=== PATIENT | female | born 1980 | race Caucasian/White ===

== ENCOUNTER 2021-08-22 13:00 | Outpatient (CLI) | payer OTHER ==
[2021-08-22 13:38] LABS: TOTAL VOLUME 24HRS,URINE 1300 mL
[2021-08-22 14:14] LABS: TOTAL PROTEIN,URINE TIMED < 6 mg/dL
== END 2021-08-22 23:59 | disposition home or self-care (01) ==
LOC: LAB.R 13:00
PROVIDERS: ATTEND Internal Medicine Rheumatology
DX: R76.8 Other specified abnormal immunological findings in serum (principal); R80.9 Proteinuria, unspecified
CPT/HCPCS: 84156

== ENCOUNTER 2021-09-02 20:17 | Emergency (ER) | payer OTHER ==
--- NOTE | 2021-09-02 21:08 | ED Physician Documentation ---
History of Present Illness - Stated complaint Stated Complaint: FOREIGN TRAVEL/FLU SYMPTOMS - Chief complaint Chief Complaint: General - History obtained from History obtained from: Patient - Additonal information Additional information: Patient is a 41-year-old female with no significant past medical history who recently returned from travel in [place]. On her last day of travel she started experiencing chills, body aches, weakness and diarrhea. She required COVID test to return back to the [place] and had 3 PCR test that she reports are negative. She was initially starting to feel better but again today having continued diarrhea with more than 7 episodes that are loose and watery with no blood. She reports having abdominal cramping. She denies any known sick contacts. She only traveled in [place] and was staying at a resort. She has not taken any medications for her symptoms. Review of Systems Constitutional: reports: Chills. denies: Fever Nose: denies: Congestion Throat: denies: Sore throat Cardiac: denies: Chest pain / pressure Respiratory: denies: Dyspnea, Cough GI: reports: Abdominal Pain, Diarrhea (Cramping). denies: Vomiting : denies: Dysuria, Discharge Skin: denies: Rash Musculoskeletal: denies: Back pain Neurologic: denies: Headache PD PAST MEDICAL HISTORY - Present Medications Home Medications: Ambulatory Orders Medication Instructions Recorded Confirmed Norgestimate-Ethinyl Estradiol 1 each PO DAILY 09/02/21 09/02/21 [[id number] Tablet] - Allergies Allergies/Adverse Reactions: Allergies Allergy/AdvReac Type Severity Reaction Status Date / Time No Known Drug Allergies Allergy Verified 09/02/21 20:32 PD ED PE NORMAL - General General: Alert and oriented X 3, No acute distress, Well developed/nourished - HEENT HEENT: Atraumatic, Moist mucous membranes, Pharynx benign - Neck Neck: Supple, no meningeal sign - Cardiac Cardiac: RRR, No murmur, Strong equal pulses - Respiratory Respiratory: No respiratory distress, Clear bilaterally - Abdomen Abdomen: Soft, Non distended, Other (Mild generalized abdominal tenderness, hyperactive bowel sounds) - Derm Derm: Warm and dry - Extremities Extremities: No edema - Neuro Neuro: Normal speech - Psych Psych: Normal mood Results - Vitals Vitals: Vital Signs - 24 hr 09/02/21 09/02/21 20:26 23:12 Temperature 36.4 C L 36.3 C L Heart Rate 77 62 Respiratory 14 16 Rate Blood Pressure 133/82 H 120/85 H O2 Saturation 99 98 Oxygen O2 Source Room air - Labs Labs: Laboratory Tests 09/02/21 09/02/21 09/02/21 20:40 21:20 21:20 WBC 10.5 RBC 3.85 L Hgb 12.7 Hct 37.3 MCV 96.9 MCH 33.0 H MCHC 34.0 RDW 12.1 Plt Count 308 MPV 9.5 Neut # (Auto) 7.2 H Lymph # (Auto) 2.0 [place] # (Auto) 1.0 Eos # (Auto) 0.2 Baso # (Auto) 0.1 Absolute Nucleated RBC 0.00 Nucleated RBC % 0.0 Sodium 137 Potassium 3.5 Chloride 101 Carbon Dioxide 25 Anion Gap 11.0 BUN 7 Creatinine 0.9 Estimated GFR (MDRD) 70 L Glucose 98 Calcium 8.7 Total Bilirubin 0.3 AST 21 ALT 26 Alkaline Phosphatase 38 L Total Protein 6.7 Albumin 3.5 Globulin 3.2 Albumin/Globulin Ratio 1.1 Lipase 32 Urine Color Urine Clarity Urine pH Ur Specific [place] Urine Protein Urine Glucose (UA) Urine Ketones Urine Occult Blood Urine Nitrite Urine Bilirubin Urine Urobilinogen Ur Leukocyte Esterase Ur Microscopic Review Urine Culture Comments Urine HCG, Qual Nasal Adenovirus (PCR) NOT DETECTED Nasal B. parapertussis DNA (PCR) NOT DETECTED Nasal Coronavir 229E PCR NOT DETECTED Nasal Coronavir HKU1 PCR NOT DETECTED Nasal Coronavir NL63 PCR NOT DETECTED Nasal Coronavir OC43 PCR NOT DETECTED Nasal Enterovir/Rhinovir PCR NOT DETECTED Nasal Influenza B PCR NOT DETECTED Nasal Influenza A PCR NOT DETECTED Nasal Parainfluen 1 PCR NOT DETECTED Nasal Parainfluen 2 PCR NOT DETECTED Nasal Parainfluen 3 PCR NOT DETECTED Nasal Parainfluen 4 PCR NOT DETECTED Nasal RSV (PCR) NOT DETECTED Nasal B.pertussis DNA PCR NOT DETECTED Nasal C.pneumoniae (PCR) NOT DETECTED Enoc Human Metapneumo PCR NOT DETECTED Nasal M.pneumoniae (PCR) NOT DETECTED Nasal SARS-CoV-2 (PCR) NOT DETECTED 09/02/21 09/02/21 22:32 22:32 WBC RBC Hgb Hct MCV MCH MCHC RDW Plt Count MPV Neut # (Auto) Lymph # (Auto) [place] # (Auto) Eos # (Auto) Baso # (Auto) Absolute Nucleated RBC Nucleated RBC % Sodium Potassium Chloride Carbon Dioxide Anion Gap BUN Creatinine Estimated GFR (MDRD) Glucose Calcium Total Bilirubin AST ALT Alkaline Phosphatase Total Protein Albumin Globulin Albumin/Globulin Ratio Lipase Urine Color DARK YELLOW Urine Clarity CLEAR Urine pH 6.0 Ur Specific [place] 1.010 Urine Protein NEGATIVE Urine Glucose (UA) NEGATIVE Urine Ketones NEGATIVE Urine Occult Blood TRACE-INTA Urine Nitrite NEGATIVE Urine Bilirubin NEGATIVE Urine Urobilinogen 0.2 (NORMAL) Ur Leukocyte Esterase NEGATIVE Ur Microscopic Review NOT INDICATED Urine Culture Comments NOT INDICATED Urine HCG, Qual NEGATIVE Nasal Adenovirus (PCR) Nasal B. parapertussis DNA (PCR) Nasal Coronavir 229E PCR Nasal Coronavir HKU1 PCR Nasal Coronavir NL63 PCR Nasal Coronavir OC43 PCR Nasal Enterovir/Rhinovir PCR Nasal Influenza B PCR Nasal Influenza A PCR Nasal Parainfluen 1 PCR Nasal Parainfluen 2 PCR Nasal Parainfluen 3 PCR Nasal Parainfluen 4 PCR Nasal RSV (PCR) Nasal B.pertussis DNA PCR Nasal C.pneumoniae (PCR) Enoc Human Metapneumo PCR Nasal M.pneumoniae (PCR) Nasal SARS-CoV-2 (PCR) PD MEDICAL DECISION MAKING - ED course Complexity details: reviewed results, re-evaluated patient, d/w patient ED course: 2343 - Patient feeling significantly better after receiving IV fluids. No episodes of diarrhea while here so unable to give a stool sample. Patient with chills, body aches and diarrhea. Has abdominal cramping And mild generalized tenderness on exam.No pelvic tenderness. Vitals are reassuring and labs are unremarkable. Patient felt significantly better after IV fluids and Toradol with no tenderness on repeat exam. Do not think she requires a CT tonight. Patient was not able to give a stool sample. Counseled on continuing with supportive care and aware of return precautions. Departure - Departure Disposition: 01 Home, Self Care Clinical Impression: Diarrhea Qualifiers: Diarrhea type: presumed infectious Qualified Code(s): R19.7 - Diarrhea, unspecified Condition: Stable Instructions: ED Diet Vomiting Diarrhea Comments: Priscilla - You were evaluated for abdominal cramping and diarrhea. Your labs are overall reassuring. You were not able to give a stool sample to see if there is an infection in the stool causing your symptoms that would require antibiotics. A respiratory panel was performed which is negative for COVID as well as a number of other cold viruses. However your symptoms could be related to a virus that we do not check for.Please continue with hydrating yourself And using Motrin or Tylenol for any aches or pains. If you develop any worsening symptoms please return to the emergency department. Discharge Date/Time: 09/02/21 23:56
[2021-09-02 21:26] LABS: BASOPHILS # (AUTO) 0.1 10^3/uL (0.0-0.1); BASOPHILS % (AUTO) 0.5 %; EOSINOPHILS # (AUTO) 0.2 10^3/uL (0.0-0.7); EOSINOPHILS % (AUTO) 2.1 %; HCT - HEMATOCRIT 37.3 % (37.0-47.0); HGB - HEMOGLOBIN 12.7 g/dL (12.0-16.0); LYMPHOCYTES % (AUTO) 18.8 %; MEAN CORPUSCULAR VOLUME 96.9 fL (81.0-99.0); MEAN PLATELET VOLUME 9.5 fL (7.9-10.8); MONOCYTES % (AUTO) 9.6 %; NEUTROPHILS # (AUTO) 7.2 10^3/uL (1.5-6.6); NEUTROPHILS % (AUTO) 68.6 %; PLT - PLATELET COUNT 308 10^3/uL (130-450); RED BLOOD COUNT 3.85 10^6/uL (4.20-5.40); RED CELL DISTRIBUTION WIDTH 12.1 % (12.0-15.0); WHITE BLOOD COUNT 10.5 x10^3/uL (4.8-10.8)
[2021-09-02] MEDS: KETOROLAC 30 MG/ML VIAL IVP STA (21:45)
[2021-09-02 21:49] LABS: B. PARAPERTUSSIS- RESP PCR PAN NOT DETECTED; B. PERTUSSIS- RESP PCR PANEL NOT DETECTED; C. PNEUMONIAE- RESP PCR PANEL NOT DETECTED; CORONAVIRUS 229E-RESP PCR NOT DETECTED; CORONAVIRUS HKU1-RESP PCR NOT DETECTED; CORONAVIRUS NL63-RESP PCR NOT DETECTED; CORONAVIRUS OC43-RESP PCR NOT DETECTED; HUMAN METAPNEUMOVIRUS NOT DETECTED; INFLUENZA A- RESP PCR PANEL NOT DETECTED; INFLUENZA B - RESP PCR PANEL NOT DETECTED; M. PNEUMONIAE- RESP PCR PANEL NOT DETECTED; PARAINFLUENZA VIRUS 1 NOT DETECTED; PARAINFLUENZA VIRUS 2 NOT DETECTED; PARAINFLUENZA VIRUS 3 NOT DETECTED; PARAINFLUENZA VIRUS 4 NOT DETECTED; RHINOVIRUS/ENTEROVIRUS NOT DETECTED; RSV- RESP PCR PANEL NOT DETECTED; SARS-CoV-2 -RESP PCR PANEL NOT DETECTED
[2021-09-02] MEDS: SODIUM CHLORIDE 0.9% 1,000 ML IV STA (21:49)
[2021-09-02 22:01] LABS: ALBUMIN 3.5 g/dL (3.2-5.5); ALBUMIN/GLOBULIN RATIO 1.1 (1.0-2.2); BILIRUBIN,TOTAL 0.3 mg/dL (0.2-1.0); CALCIUM 8.7 mg/dL (8.5-10.3); CREATININE 0.9 mg/dL (0.4-1.0); POTASSIUM 3.5 mmol/L (3.5-5.0); TOTAL PROTEIN 6.7 g/dL (6.7-8.2)
[2021-09-02 22:48] LABS: GLUCOSE, URINE (UA) NEGATIVE (NEGATIVE); KETONES,URINE (UA) NEGATIVE (NEGATIVE); LEUKOCYTE ESTERASE, URINE NEGATIVE (NEGATIVE); NITRITE,URINE NEGATIVE (NEGATIVE); OCCULT BLOOD,URINE TRACE-INTA (NEGATIVE); PROTEIN,URINE NEGATIVE (NEGATIVE); UROBILINOGEN,URINE 0.2 (NORMAL) E.U./dL (NORMAL)
[2021-09-02 22:57] LABS: BILIRUBIN,URINE NEGATIVE (NEGATIVE); CLARITY,URINE CLEAR (CLEAR); ICTOTEST,URINE NEGATIVE
[2021-09-02 23:14] VITALS: BP 120/85
[2021-09-02 23:27] LABS: HCG UR QUAL NEGATIVE
== END 2021-09-02 23:56 | disposition home or self-care (01) ==
LOC: ED 20:17
DX: R19.7 Diarrhea, unspecified (principal); Z20.822 Contact with and (suspected) exposure to COVID-19
CPT/HCPCS: 36415; 80053; 81001; 81003; 81025; 83690; 85025; 87086; 87633; 96374; 99282

== ENCOUNTER 2022-03-13 07:37 | Emergency (ER) | payer OTHER ==
[2022-03-13 07:49] VITALS: BP 129/81
[2022-03-13 08:03] LABS: RAPID STREP SCREEN Negative (Negative)
[2022-03-13] MEDS ORDERED: CHERRY SYRUP 10 ML UDC PO ONE (09:48)
[2022-03-13] MEDS ORDERED: DEXAMETHASONE 10 MG/ML VIAL PO STA (09:48)
--- NOTE | 2022-03-13 09:50 | ED Physician Documentation ---
PD HPI URI - Stated complaint Stated Complaint: THROAT PX - Chief complaint Chief Complaint: Heent - History obtained from History obtained from: Patient - History of Present Illness Timing - onset: How many days ago (5) Timing duration: Days (5) Timing details: Gradual onset, Still present Associated symptoms: Nasal congestion, Rhinorrhea, Sore throat, Dry cough, Dyspnea. No: Fever Contributing factors: Sick contact Improves by: Rest, Medication Worsened by: Activity Similar symptoms before: Diagnosis (uri) Recently seen: Not recently seen - Additional information Additional information: Previously healthy Priscilla Lizama is a 41-year-old female who has developed a cough and congestion 5 days ago. She has a sore throat. That is her predominant symptom. She has had cough productive of clear phlegm. She denies muffled hearing ear pain or sinus pain. Review of Systems Constitutional: reports: Myalgias, Fatigue. denies: Fever Eyes: denies: Decreased vision Ears: denies: Ear pain Nose: reports: Rhinorrhea / runny nose, Congestion Throat: reports: Sore throat Cardiac: denies: Chest pain / pressure, Palpitations Respiratory: reports: Dyspnea, Cough GI: denies: Nausea, Vomiting, Constipation, Diarrhea : denies: Dysuria, Frequency PD PAST MEDICAL HISTORY - Present Medications Home Medications: Ambulatory Orders Medication Instructions Recorded Confirmed Norgestimate-Ethinyl Estradiol 1 each PO DAILY 09/02/21 09/02/21 [[id number] Tablet] - Allergies Allergies/Adverse Reactions: Allergies Allergy/AdvReac Type Severity Reaction Status Date / Time No Known Drug Allergies Allergy Verified 09/02/21 20:32 PD ED PE NORMAL - Vitals Vital signs reviewed: Yes (normal ) - General General: Alert and oriented X 3, No acute distress, Well developed/nourished - HEENT HEENT: Atraumatic, PERRL, EOMI, Ears normal, Moist mucous membranes, Other (mild pharyngeal erythema ) - Neck Neck: Supple, no meningeal sign, No bony TTP - Cardiac Cardiac: RRR, No murmur - Respiratory Respiratory: No respiratory distress, Clear bilaterally - Abdomen Abdomen: Soft, Non tender - Back Back: No CVA TTP, No spinal TTP - Derm Derm: Normal color, Warm and dry, No rash - Extremities Extremities: No deformity, No edema - Neuro Neuro: Alert and oriented X 3, mold dumper 2-12 intact, No motor deficit, No sensory deficit, Normal speech Eye Opening: Spontaneous Motor: Obeys Commands Verbal: Oriented GCS Score: 15 - Psych Psych: Normal mood, Normal affect Results - Vitals Vitals: Vital Signs - 24 hr 03/13/22 07:47 Temperature 37.1 C Heart Rate 78 Respiratory 18 Rate Blood Pressure 129/81 H O2 Saturation 98 Oxygen O2 Source Room air - Labs Labs: Laboratory Tests 03/13/22 07:48 Group A Strep Rapid Negative PD MEDICAL DECISION MAKING - ED course Complexity details: considered differential, d/w patient ED course: 41-year-old female with a chief complaint of a sore throat has a negative rapid strep and she has no evidence of inflammation in the middle ear she has no drainage of yellow or green phlegm and she is afebrile. She did do a COVID test yesterday which was negative. She likely has one of the 6 respiratory viruses currently in the community and we have diagnosed her with viral URI. She is given a dose of dexamethasone. She is on a 5th day of illness expected to improve. Departure - Departure Disposition: 01 Home, Self Care Clinical Impression: Viral URI with cough Condition: Stable Instructions: ED Pharyngitis Viral Follow-Up: YARA CONNELL MD [Primary Care Provider] - Comments: Priscilla today we did not find evidence of a bacterial infection. The rapid strep was negative. A culture is being done and if it is positive you will get a call from us in the next 2 days. Our expectation is improvement today symptomatically with the decadron we gave you and continued improvement after that. Development of green or yellow phlem that is persistent is a reason for follow up. It is typical at the conclusion of the illness to cough up "thick" phlem that may be brown or [place].
== END 2022-03-13 10:19 | disposition home or self-care (01) ==
LOC: ED 07:37
DX: J06.9 Acute upper respiratory infection, unspecified (principal)
CPT/HCPCS: 87070; 87430; 99282; 99283; A9270

== ENCOUNTER 2022-10-08 13:39 | Outpatient (CLI) | payer OTHER ==
--- NOTE | 2022-10-08 21:27 | MRI Report ---
PROCEDURE: FINGER(S) WO - RT INDICATIONS: RIGHT THUMB PAIN TECHNIQUE: Noncontrast oblique coronal T1 spin echo and T2 fast spin echo with fat saturation, axial and sagitta l T2 fast spin echo with fat saturation, through the thumb. COMPARISON: None. FINDINGS: Image quality: Excellent. Bones: The bones are normally aligned, without marrow contusions or fractures. Mild first CMC joint osteoarthritic changes are seen with joint space narrowing and subchondral sclerosis. No intra-osseou s lesions. First carpometacarpal joint: On sagittal images, the dorsal radial ligament and posterior oblique li gament appear thickened. The intermetacarpal ligament between the 1st and 2nd metacarpal bases also appears intact. On the volar aspect, the deep and superficial layers of the anterior oblique ligamen t appear attenuated with intrasubstance T2 hyperintense signal near its proximal insertion First metacarpophalangeal joint: The proper and accessory components of the radial collateral ligame nt appears thickened. The overlying fibers of the abductor pollicis brevis tendon very intact. The p jacuqie and accessory components of the ulnar collateral ligaments appear intact, along with overlying fibers of the adductor pollicis muscle. The aponeurosis of the adductor pollicis muscle also appears normal. The volar plate appears intact on sagittal images, situated between the radial and ulnar se samoids. Thenar muscles: The superficial abductor pollicis longus muscle appears normal, with tendon insertin g on the radial base of the first proximal phalanx. The opponens pollicis muscle also appears normal , inserting on the first metacarpal shaft. The flexor pollicis brevis muscle appears normal, with te ndon inserting on the radial sesamoid and first proximal phalanx. The oblique and transverse heads o f the adductor pollicis muscle appear normal, inserting on the ulnar sesamoid and proximal phalanx as part of the adductor aponeurosis. Flexor pollicis longus tendon: Tendon fibers appear intact, coursing between the thenar eminence mus cles and the adductor pollicis muscle, and inserting on the volar base of the distal phalanx. The fi rst annular saima at the level of the first MCP joint appears intact, intimate with the sesamoids. The second annular saima at the level of interphalangeal joint also appears intact. The oblique samreen ular saima between the 1st and 2nd annular pulleys appears intact, with ulnar proximal attachment in timate with the adductor aponeurosis. The variable annular saima also appears intact between the fi rst annular and oblique annular pulleys. Extensor tendons: The extensor pollicis brevis tendon appears intact, coursing radial to the extenso r pollicis longus tendon and inserting on the dorsal base of the proximal phalanx, blending with the dorsal plate of the first MCP joint. The extensor pollicis longus tendon appears intact as it insert s on the dorsal base of the distal phalanx. The sagittal band at the level of the first MCP joint ap pears intact. The abductor pollicis longus tendon slips appear intact at the radial aspect of the pr oximal phalanx, proximal to the abductor pollicis brevis tendon insertion. Miscellaneous: No ganglion cysts. IMPRESSION: 1. Mild first CMC joint osteoarthritic changes as above. No marrow edema. No fracture or dislocation. No suspicious bony lesions. 2. Sprain involving dorsal radial ligament and posterior oblique ligament of first CMC joint. Sprain/ low-grade partial thickness tear involving anterior oblique ligament near its proximal insertion. 3. Low-grade sprain involving radial collateral ligament of first MCP joint. The ulnar collateral lig ament is intact. 4. No thenar muscle signal abnormalities. Extensor and flexor tendons are intact. Reviewed by: Yvan Aguayo MD on 10/08/2022 9:26 PM PDT Approved by: Yvan Aguayo MD on 10/08/2022 9:26 PM PDT Station ID: [id number]
== END 2022-10-08 13:40 | disposition home or self-care (01) ==
LOC: DI 13:39
PROVIDERS: ATTEND Student in an Organized Health Care Education/Training Program
DX: S63.681A Other sprain of right thumb, initial encounter (principal); M18.11 Unilateral primary osteoarthritis of first carpometacarpal joint, right hand

== ENCOUNTER 2023-03-23 07:25 | Outpatient (CLI) | payer OTHER ==
[~2023-03-23 07:25] MED LIST: GADOTERATE MEGLUMINE 10 MMOL/20 ML VIAL ONE
--- NOTE | 2023-03-23 14:09 | MRI Report ---
PROCEDURE: PELVIS W/WO INDICATIONS: ADENOMYOSIS OF UTERUS CONTRAST: 13.6ml Clariscan TECHNIQUE: Coronal ultra fast SE, sagittal breath-hold T2 FSE; axial T1 FSE with and without fat saturation thro ugh the pelvis. Optional long- and short-axis uterine nonbreath-hold T2 FSE through the uterus. Sag ittal or axial dynamic ultra fast GE during administration of contrast. Post-contrast axial or coron al ultra fast GE / 2-D spoiled GE with fat saturation from the iliac crests to the symphysis. Option al diffusion weighted imaging and ADC may be performed. COMPARISON: None. FINDINGS: Image quality: Excellent. Uterus: Uterus is normal in size, is anteverted and anteflexed. Within the junctional zone, there is a T2 hypointense lesion with tiny, internal, punctate T2 hyperintense foci measuring 2.2 x 1.6 cm al gato the posterior margin of the upper uterine segment (series 3, image 16). A couple of uterine fibro ids are also present, which are viable. For example, the 1.1 x 0.9 cm lesion on the anterior margin o f the mid uterine segment (series 3, image 15) and the 1.2 x 0.9 cm intramural lesion along the poste rior mid uterine segment (series 3, image 16). Nabothian cysts. Adnexa: Both ovaries are normal in size, without suspicious cystic or solid lesions. Urinary system: Bladder wall is normal in thickness. Distal ureters are non distended. Urethra dom ears normal in morphology. Nodes and vessels: No pelvic or inguinal adenopathy by size criteria. Iliac vessels are normal in s ize. Bowel and peritoneum: No pathologic free pelvic fluid. Inferior colon and small bowel loops are nor mal in caliber. Soft tissues: No inguinal hernias. No findings of pelvic floor incompetence in the absence of provo cation. Bones: Marrow demonstrates normal overall signal. IMPRESSION: Suspected focal adenomyomatosis at the uterine fundus measuring 2.2 x 1.6 cm. Additional smaller intramural uterine fibroids, which are viable. Reviewed by: Matthew Garces MD on 03/23/2023 2:08 PM PST Approved by: Matthew Garces MD on 03/23/2023 2:08 PM PST Station ID: [id number]
[2023-03-23] MEDS ORDERED: GADOTERATE MEGLUMINE 10 MMOL/20 ML VIAL IVP ONE (16:51)
== END 2023-03-23 07:26 | disposition home or self-care (01) ==
LOC: DI 07:25
PROVIDERS: ATTEND Pediatrics
DX: N80.03 Adenomyosis of the uterus (principal); N83.209 Unspecified ovarian cyst, unspecified side; D25.1 Intramural leiomyoma of uterus
CPT/HCPCS: 72197; A9575

== ENCOUNTER 2023-10-31 07:16 | Outpatient (CLI) | payer OTHER ==
--- NOTE | 2023-11-01 15:42 | Ultrasound Report ---
PROCEDURE: Pelvic w/Transvaginal INDICATIONS: AUB TECHNIQUE: Real-time scanning was performed of the pelvic organs, with image documentation. Additional endovagi nal scanning was necessary due to incomplete visualization of the adnexal and endometrial structures by transabdominal scanning. COMPARISON: Pelvic MRI 03/23/2023. FINDINGS: Uterus: Uterus is anteverted and normal in size at 9.3 x 5.1 x 4.9 cm. The myometrium is heterogene ous. The endometrium measures 13 mm in combined thickness. Fibroid versus polyp in the endometrium m easuring 1.2 x 1.0 x 0.9 cm. Vertical shadowing at the fundus consistent with history of adenomyosis. Right anterior subserosal fibroid measuring 1.6 x 1.2 x 1.5 cm. Ovaries: The right ovary is surgically absent. The left ovary measures 2.4 x 1.6 x 3.0 cm, with a c alculated ovarian volume of 6.2 cc. Normal appearance of the left ovary. Other: No pathologic free abdominal or pelvic fluid. IMPRESSION: 1.Endometrial polyp versus submucosal fibroid measuring 1.2 cm. Recommend endometrial sampling or tesfaye rt-term follow-up ultrasound. 2.Findings consistent with adenomyosis at the fundus as seen on prior MRI. 3.Right ovary is surgically absent. Left ovary is normal in appearance. 4.Right anterior subserosal fibroid measuring 1.6. Reviewed by: Gallito Mckinney MD on 11/01/2023 3:40 PM PDT Approved by: Gallito Mckinney MD on 11/01/2023 3:40 PM PDT Station ID: [id number]
== END 2023-10-31 07:17 | disposition home or self-care (01) ==
LOC: DI 07:16
PROVIDERS: ATTEND Obstetrics & Gynecology
DX: D25.2 Subserosal leiomyoma of uterus (principal); Z90.721 Acquired absence of ovaries, unilateral